=== PATIENT | female | born 1995 | race Caucasian/White ===

== ENCOUNTER 2017-03-31 09:11 | Emergency (ER) | payer MEDICAID, OTHER ==
[2017-03-31 09:13] VITALS: BP 106/63; PULSE 72; RESP 14; TEMP 97.7; O2SAT 96
[2017-03-31] MEDS ORDERED: PRED-503 PO (09:53)
--- NOTE | 2017-03-31 09:53 | PD ---
HPI Chief Complaint: Allergic/Adverse Reaction Time Seen by Provider: 09:43 Travel History International Travel<30 days: No Contact w/Intl Traveler<30days: No Traveled to known affect area: No Allergies-Medications (Allergen,Severity, Reaction): Coded Allergies: oxycodone (Verified Allergy, Unknown, "THROAT SWELLING.", 03/31/17) Reported Meds & Prescriptions Reported Meds & Active Scripts Active Deltasone (Prednisone) 20 Mg Tab 20 Mg PO DAILY 4 Days start 04/01/2017 Data Data Last Documented VS Vital Signs Date Time Temp Pulse Resp B/P (MAP) Pulse Ox O2 Delivery O2 Flow Rate FiO2 03/31/17 09:13 97.7 72 14 106/63 (77) 96 MDM Medical Decision Making Medical Screen Exam Complete: Yes Emergency Medical Condition: Yes Medical Record Reviewed: Yes Disposition: 01 DISCHARGE HOME Condition: Stable Savanna Rhodes Mar 31, 2017 09:53
[2017-03-31] MEDS ORDERED: PRED1TAB72 SL (10:03)
--- NOTE | 2017-03-31 10:07 | PD ---
HPI Chief Complaint: Allergic/Adverse Reaction Time Seen by Provider: 09:43 Travel History International Travel<30 days: No Contact w/Intl Traveler<30days: No Traveled to known affect area: No History of Present Illness HPI The patient was seen and examined in the presence of the nurse. This patient complains of rash. She was concerned that it might be allergic reaction. He has no idea what it might be reacting to. She takes no prescription medication. Rash started in her neck and has spread to her torso and arms. It started 2 days ago. She has taken a few doses of Benadryl and she took a dose of Prelone today which was lying around the house. Rash has improved. Shortness of breath or wheezing. Symptoms severity is mild PFSH Social History Alcohol Use: No Tobacco Use: No Substance Use: No Allergies-Medications (Allergen,Severity, Reaction): Coded Allergies: oxycodone (Verified Allergy, Unknown, "THROAT SWELLING.", 03/31/17) Reported Meds & Prescriptions Reported Meds & Active Scripts Active Review of Systems General / Constitutional: No: Fever HENT: No: Headaches Cardiovascular: No: Chest Pain or Discomfort Physical Exam Narrative RESPIRATORY: Respiratory effort unlabored, no retractions or use of accessory muscles. Breath sounds are clear and symmetric. Throat clear GASTROINTESTINAL: Abdomen soft, non-tender, nondistended. Positive bowel sounds. No hepato-splenomegaly, or palpable masses. No guarding. Skin: Very faint pink macular rash seen best on left forearm Data Data Last Documented VS Vital Signs Date Time Temp Pulse Resp B/P (MAP) Pulse Ox O2 Delivery O2 Flow Rate FiO2 03/31/17 09:13 97.7 72 14 106/63 (77) 96 MDM Medical Decision Making Medical Screen Exam Complete: Yes Emergency Medical Condition: Yes Medical Record Reviewed: Yes Differential Diagnosis Rash, allergic reaction, dermatitis Narrative Course I have reviewed the patient's electronic medical record. Patient has a very minor for the most part barely visible rash It is getting better and her current treatment of as needed Benadryl and Prelone She will continue that for 2 more days The patient was advised to follow up with their physician and return if they worsen. Diagnosis Primary Impression: Rash Referrals: [employer] Primary Care Physician Patient Instructions: General Instructions Additional Instructions: Take 2 more doses of Prelone Use Benadryl as needed The patient was advised to follow up with their physician and return if they worsen. Disposition: 01 DISCHARGE HOME Condition: Stable Roosevelt Singh MD Mar 31, 2017 10:07
== END 2017-03-31 10:14 | disposition home or self-care (01) ==
LOC: EDBD 09:11 → NEPD 09:11
DX: R21 Rash and other nonspecific skin eruption (principal)
CPT/HCPCS: 99282